=== PATIENT | male | born 2000 | race Caucasian/White ===

== ENCOUNTER 2019-02-22 08:41 | Emergency (ER) | payer SELFPAY ==
--- NOTE | 2019-02-22 08:41 | NUR ---
BROUGHT IN BY NADEEM JESUS AND PLACED IN HALLWAY FOR TRIAGE.
--- NOTE | 2019-02-22 08:41 | NUR ---
PT BROUGHT IN BY [facility] FOR OK TO BOOK, PT REFUSING TO BE TRIAGED, REFUSING VITALS. DR CARTY AT BEDSIDE FOR EVALUATION.
--- NOTE | 2019-02-22 08:49 | NUR ---
Patient given written and verbal discharge instructions and verbalizes understanding. ER MD discussed with patient the results and treatment provided. Patient in stable condition. ID arm band removed. Rx of NONE given. Patient educated on pain management and to follow up with PMD. Pain Scale 0/10. Opportunity for questions provided and answered. Medication side effect fact sheet provided.
--- NOTE | 2019-02-22 08:53 | NUR ---
Note [facility] in EDM - 02/22/19 at 0854 by HEATHER Patient given written and verbal discharge instructions and verbalizes understanding. ER discussed with patient the results and treatment provided. Patient in stable condition. Rx of NONE given. Patient educated on pain management and to follow up with PMD. Pain Scale 0/10. Opportunity for questions provided and answered. Medication side effect fact sheet provided.
== END 2019-02-22 08:52 ==
LOC: SED 08:41
DX: Z02.89 Encounter for other administrative examinations (principal)
CPT/HCPCS: 99283